=== PATIENT | male | born 1990 | race Caucasian/White ===

== ENCOUNTER 2020-04-06 18:23 | Emergency (ER) | payer OTHER ==
[~2020-04-06] VITALS: Ht 180.3 cm; Wt 105.0 kg
[~2020-04-06 18:23] MED LIST: COZA100T2 PO; HYDR25TAB PO; MOBI4TAB PO; ZANA4TAB PO
--- NOTE | 2020-04-06 19:14 | REPVR ---
PROCEDURE INFORMATION: Exam: XR Right Foot Complete Exam date and time: 04/06/2020 6:30 PM Age: 29 years old Clinical indication: Pain; Foot; Right; Additional info: Object fell onto foot TECHNIQUE: Imaging protocol: XR Right foot. Views: 3 or more views. COMPARISON: No relevant prior studies available. FINDINGS: Bones/joints: Normal. Soft tissues: Normal. IMPRESSION: No acute findings. Electronically signed by: China Spencer On 04/06/2020 19:13:45 PM
[2020-04-06] MEDS ORDERED: IBUPROFEN 800 MG TAB PO ONE (19:45)
[2020-04-06 20:06] VITALS: BP 134/93
== END 2020-04-06 20:15 | disposition home or self-care (01) ==
LOC: M ED 18:23
DX: S90.111A Contusion of right great toe without damage to nail, initial encounter (principal); W20.8XXA Other cause of strike by thrown, projected or falling object, initial encounter; Y92.9 Unspecified place or not applicable; Y99.1 Military activity; I10 Essential (primary) hypertension